=== PATIENT | female | born 2005 | race Caucasian/White ===

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

== ENCOUNTER 2024-07-15 10:18 | Emergency (ER) | payer OTHER, MEDICAID ==
[~2024-07-15] VITALS: Ht 167.6 cm; Wt 56.0 kg
[~2024-07-15 10:18] MED LIST changes: +LIDO15SO9 PO
[2024-07-15] MEDS: dexamethasone sod phosphate 10mg/ml inj IM STA (13:32)
[2024-07-15] MEDS: ketorolac trometh 30MG/ML vial 30 MG/ML VIAL IV ONE (13:32)
[2024-07-15] MEDS ORDERED: BENZ-38 PO (15:32)
[2024-07-15] MEDS ORDERED: ACET1TAB96 PO (15:32)
[2024-07-15] MEDS ORDERED: PRED20TA PO (15:32)
[2024-07-15] MEDS ORDERED: PROM25TA14 PO (15:32)
[2024-07-15] MEDS ORDERED: ALBU8HFA INH (15:32)
[2024-07-15 16:01] VITALS: BP 116/81; PULSE 68; RESP 16; TEMP 97.8; O2SAT 98
== END 2024-07-15 16:03 | disposition home or self-care (01) ==
LOC: ER 10:19
DX: J40 Bronchitis, not specified as acute or chronic (principal); Z20.822 Contact with and (suspected) exposure to COVID-19
CPT/HCPCS: 36415; 71045; 87811; 96372; 96374; 99284; J1100; J1885

== ENCOUNTER 2024-10-18 13:50 | Emergency (ER) | payer OTHER, MEDICAID ==
[~2024-10-18] VITALS: Ht 167.6 cm; Wt 57.1 kg
[2024-10-18 14:04] VITALS: BP 104/70; PULSE 70; RESP 18; TEMP 98.3; O2SAT 98
--- NOTE | 2024-10-18 15:13 | Physician Documentation ---
History of Present Illness ~ Chief Complaint: Headache Stated Complaint: HEADACHE Time Seen by MD: 14:59 Primary Medical Doctor: [facility] Source: patient Mode of Arrival: POV Exam Limitations: no limitations HPI 18-year-old female complaining of headache that is started approximately 2 hours ago. Treatment with Benadryl due to her eyes feeling passing and having pressure without relief. Patient states that the headache is primarily on the right frontal region some to the left denies photosensitivity but does state that she has pressure. No nausea vomiting diarrhea constipation. Patient denies any significant headache history. Patient states that she has maintain hydration but has been out in the heat. Last menstrual cycle October 05, 2024. Patient denies any head injury Medication Reconciliation Allergies: Coded Allergies: No Known Allergies (Unverified , 07/15/24) Scheduled Ibuprofen (Motrin Ib), 200 MG PO QID Lidocaine HCl (Lidocaine HCl Viscous), 15 ML PO Q6H Methylprednisolone (Medrol), 1 DOSPAK PO UD Triamcinolone Acetonide 0.1% Crm* (Kenalog 0.1% Crm*), 1 APPLIC TP BID Past Medical History Past Medical History: No Pertinent History Past Surgical History: noncontributory Alcohol Use: None Drug Use: none Lives with: Family Lives In: Home Occupation: child Review of Systems All Other Systems at this time: Reviewed and Negative Neurological: Reports: see HPI Physical Exam Vital Signs: RN Vital Signs have been reviewed: Yes, Temperature: 98.3, Source: Temporal, Heart Rate: 70, Respiratory Rate: 18, BP: 104/70, Pulse Oximetry: 98, Weight: 57.150 Oxygen Flow Rate: 0 Physical Exam General: Alert, no apparent distress. HEENT: PERRL, EOMI, no injection, moist mucous membranes. Neck: Full range of motion. No meningeal sign Respiratory: Lungs clear, no respiratory distress. Chest: No accessory muscle use. Cardiovascular: Regular rate and rhythm, no murmurs. Extremities: Normal range of motion, no deformity. Equal clinical nursing coordinator strength bilaterally good push pulls Neurologic: Oriented x4. Negative Romberg negative hints cranial nerves grossly intact Psychiatric: Normal mood and affect. Skin: Normal color, warm and dry. No edema, no ecchymosis. Progress Results/Orders Results/Orders Completed Orders - JENNIFER BRADLEY NP Sumatriptan Tablet (Imitrex Tablet) (10/18/24 15:20) Ondansetron Disint. Tablet (Zofran Odt T (10/18/24 15:20) Ketorolac Trometh 15mg/Ml Vial (Toradol (10/18/24 15:20) Ketorolac Trometh 30mg/Ml Vial (Toradol (10/18/24 15:25) Vital Signs 10/18/24 14:04 Temp 98.3 Pulse 70 Resp 18 B/P (MAP) 104/70 Pulse Ox 98 O2 Flow Rate 0 Medical Decision Making Differential Dx:Considerations: Include: ROMANO-Cluster, ROMANO-Migraine, ROMANO- Hypertensive, Close head injuyr, CVA, Mass lesion, Meningitis, Sinusitis, Other Departure Time of Disposition: 23:16 Disposition: 07 LEFT AWOL/ELOPED Impression: Primary Impression: Headache Condition: Stable Referrals: NO PRIMARY CARE PROVIDER (PCP) Signature Scribe Signature: No scribe Attestation: The note accurately reflects work and decisions made by me.Jennifer Bradley - KULWINDER 10/18/24 15:12 JENNIFER BRADLEY NP Oct 18, 2024 15:13
[2024-10-18] MEDS ORDERED: ondansetron 4mg rapidly disintigrating tab PO ONE (15:20)
[2024-10-18] MEDS ORDERED: ketorolac trometh 15mg/ml vial 15 MG/ML ML IM ONE (15:20)
[2024-10-18] MEDS ORDERED: ketorolac trometh 30MG/ML vial 30 MG/ML VIAL IM ONE (15:25)
== END 2024-10-18 18:00 | disposition left against medical advice (07) ==
LOC: ER 13:51
DX: R51.9 Headache, unspecified (principal)
CPT/HCPCS: 99282

== ENCOUNTER 2024-12-06 12:25 | Emergency (ER) | payer OTHER, MEDICAID ==
[~2024-12-06] VITALS: Ht 167.6 cm; Wt 56.4 kg
--- NOTE | 2024-12-06 14:41 | Physician Documentation ---
History of Present Illness ~ Chief Complaint: Urinary Symptoms Stated Complaint: URINARY COMPLICATIONS Time Seen by MD: 14:13 Primary Medical Doctor: [facility] Source: patient Mode of Arrival: POV Exam Limitations: no limitations HPI Patient has had urinary symptoms for the past 3-4 days. She was seen by urgent care this morning and diagnosed with urinary tract infection based on her dysuria. She complained of lower abdominal pain and felt like this was not well addressed at urgent care and therefore presented to the emergency department. No fevers or chills. No constipation/diarrhea. No blood in her stool, urine. This menstrual cycle five days ago. Was asked, but otherwise denies review of systems. Medication Reconciliation Allergies: Coded Allergies: No Known Allergies (Unverified , 07/15/24) Scheduled Ibuprofen (Motrin Ib), 200 MG PO QID Lidocaine HCl (Lidocaine HCl Viscous), 15 ML PO Q6H Methylprednisolone (Medrol), 1 DOSPAK PO UD Triamcinolone Acetonide 0.1% Crm* (Kenalog 0.1% Crm*), 1 APPLIC TP BID Past Medical History Past Medical History: No Pertinent History Past Surgical History: noncontributory Alcohol Use: None Drug Use: none Lives with: Family Lives In: Home Occupation: child Review of Systems ROS Review of systems negative except documented in HPI Physical Exam Vital Signs: RN Vital Signs have been reviewed: Yes, Temperature: 98.0, Source: Temporal, Heart Rate: 64, Respiratory Rate: 16, BP: 111/75, Pulse Oximetry: 98, Weight: 56.360 Oxygen Flow Rate: 0 Pulse Oximetry Reflects: adequate oxygenation Physical Exam General: Awake, alert, oriented. No apparent distress Respiratory: Lungs are clear to auscultation bilaterally. No respiratory distress. Chest: Normal shape and size. No accessory muscle use. Cardiovascular: Regular rate and rhythm. S1-S2. No murmur, gallop, rub. Gastrointestinal: Abdomen is soft. Tenderness to palpation over the urinary bladder. Bowel sounds present. Neurologic: Alert and oriented x4. Nonfocal Psychiatric: Normal mood and affect. Skin: Normal color. Warm and dry. Progress Results/Orders Results/Orders Vital Signs 12/06/24 12/06/24 12/06/24 12:31 14:29 14:59 Temp 98.0 98.0 Pulse 73 64 74 Resp 15 16 16 B/P (MAP) 121/82 111/75 (87) 109/75 Pulse Ox 99 98 100 O2 Flow Rate 0 Medical Decision Making Findings Patient presented secondary to urinary symptoms and lower abdominal pain. She was diagnosed with a urinary tract infection earlier today but felt like her abdominal pain was not addressed. She has been taking azo for her pain for the past three days. No fevers or chills. No nausea, vomiting. No diarrhea constipation. No flank pain. Suspect underlying cystitis. Encouraged patient to start her antibiotics as prescribed. Warning signs and symptoms were reviewed. She will follow up with her primary care provider. Encouraged to return for any fevers, chills, worsening abdominal pain or any other concerns. Departure Time of Disposition: 14:39 Disposition: 01 HOME / SELF CARE / HOMELESS Impression: Primary Impression: Acute urinary tract infection Discharge Instructions: Urinary Tract Infection, Adult Additional Instructions: Recommend that you supervisor opening and picking the antibiotics ever prescribed by urgent care. Likely your pain is secondary to your urinary tract infection. As we discussed, if you are symptoms do not improve within the next 1-2 days please return to the emergency department or go see your primary care provider. You may continue to take your [id number] [place] 0 four or bladder pain. Returned fevers, chills, increasing abdominal pain or any other concerns. Referrals: NO PRIMARY CARE PROVIDER (PCP) Education Educated: Patient Educated regarding: diagnosis, treatment, prognosis, need for follow up Signature Scribe Signature: No scribe Attestation: The note accurately reflects work and decisions made by me.Alejandra Gomez - AUBRIE 12/06/24 19:01 This note was created with the assistance of voice recognition software whereby errors in grammar, syntax, and/or spelling may have occurred despite active proofreading efforts by the author. Please do not hesitate to contact the provider for clarification or for questions regarding the content of this document. ALEJANDRA GOMEZ NP Dec 06, 2024 14:41
[2024-12-06 14:59] VITALS: BP 109/75; PULSE 74; RESP 16; TEMP 98; O2SAT 100
== END 2024-12-06 15:01 | disposition home or self-care (01) ==
LOC: ER 12:26
DX: N39.0 Urinary tract infection, site not specified (principal); Z79.899 Other long term (current) drug therapy
CPT/HCPCS: 99282